=== PATIENT | female | born 1930 | race Caucasian/White ===

== ENCOUNTER → 2018-01-14 07:22 | Outpatient (CLI) | payer OTHER | END | disposition home or self-care (01) | LOC: LAB 07:22 | DX: C73 Malignant neoplasm of thyroid gland (principal); E89.0 Postprocedural hypothyroidism ==

== ENCOUNTER 2021-06-01 09:38 | Outpatient (CLI) | payer OTHER | END 2021-06-01 09:45 | disposition home or self-care (01) | LOC: SONOGRAMA 09:38 | PROVIDERS: ATTEND Pathology Anatomic Pathology & Clinical Pathology | DX: C73 Malignant neoplasm of thyroid gland (principal) ==